=== PATIENT | female | born 1940 | race Caucasian/White ===

== ENCOUNTER 2018-07-27 12:49 | Inpatient (IN) | payer MEDICARE, OTHER ==
[~2018-07-27] VITALS: Ht 149.9 cm; Wt 110.2 kg
--- OUTSIDE RECORDS SUMMARY | ~2018-07-27 | XMS ---
Demographics + + + | Address | [address] | | | [place] [address] | + + + | Preferred Language | Unknown | + + + | Marital Status | Unknown | + + + | Mormonism Affiliation | Unknown | + + + | Race | Unknown | + + + | Ethnic Group | Unknown | + + + Author + + + | Author | [facility] | + + + | Organization | [facility] | + + + | Address | [address] | | | [place] [address] | + + + | Phone | | + + + Care Team Providers + + + + | Care Paster Supervisor Name | Role | Phone | + + + + Unavailable | Unavailable | + + + + PROBLEMS +---------+ + + +--------+ + + | Type | Condition | ICD9-CM | [id number] | Onset | Condition | SNOMED | | | | Code | Code | Dates | Status | Code | +---------+ + + +--------+ + + | Problem | Hot | R23.2 | | | Active | [id number] | | | flashes | | | | | | +---------+ + + +--------+ + + | Problem | Essential | | I10 | | Active | 65011579 | | | hypertensi | | | | | | | | on | | | | | | +---------+ + + +--------+ + + | Problem | Dysphagia | 438.82 | | | Active | [id number] | +---------+ + + +--------+ + + ALLERGIES + + + + +--------+ | Substance | Reaction | Event Type | Date | Status | + + + + +--------+ | Bactrim | vertigo | Drug Allergy | Jun, | Active | + + + + +--------+ SOCIAL HISTORY No smoking Hx information available PLAN OF CARE + +---------+ | Activity | Details | + +---------+ +---+ | | +---+ + + + | Follow Up | 2 Months Reason:null | + + + | Pending Test | TSH | + + + | Pending Test | Lipid Panel | + + + | Pending Test | Comp. Metabolic Panel (14) | + + + | Pending Test | CBC | + + + | Pending Test | Hemoglobin A1C Panel | + + + VITAL SIGNS + + + + | Height | 4 ft 11 in in | 2017-07-23 | + + + + | Weight | 253.0 lbs | 2017-07-23 | + + + + | BMI | 51.09 kg/m2 | 2017-07-23 | + + + + | Temperature | 96.9 degrees Fahrenheit | 2017-07-23 | + + + + | Heart Rate | 84 /min | 2017-07-23 | + + + + | Blood pressure systolic | 162 mm Hg | 2017-07-23 | + + + + | Blood pressure diastolic | 85 mm Hg | 2017-07-23 | + + + + MEDICATIONS + + + + + + + +--------+ | Medicati | Instruct | Dosage | Frequenc | Start | End Date | Duration | Status | | on | ions | | y | Date | | | | + + + + + + + +--------+ | Clonidin | Orally | 1 tablet | 24h | 24 Jun, | | 30 | Active | | e HCl | Once a | at | | 2016 | | day(s) | | | 0.1 MG | day | bedtime | | | | | | + + + + + + + +--------+ | Tylenol | Orally | 1 tablet | 6h | | | | Active | | 325 MG | every 6 | as | | | | | | | | hrs | needed | | | | | | + + + + + + + +--------+ | Levothyr | Orally | 1 tablet | 24h | | | | Active | | oxine | Once a | on an | | | | | | | Sodium | day | empty | | | | | | | 100 MCG | | stomach | | | | | | | | | in the | | | | | | | | | morning | | | | | | + + + + + + + +--------+ RESULTS No Results PROCEDURES + + + + + | Procedure | Date Ordered | Related Diagnosis | Body Site | + + + + + | Office Visit, Est | Jul 23, 2017 | | | | Pt., Level 3 | | | | + + + + + IMMUNIZATIONS No Known Immunizations"
--- OUTSIDE RECORDS SUMMARY | ~2018-07-27 | XMS | Clinical Summary ---
Demographics + + + | Address | [address] | | | [place] [address] | + + + | Home Phone | | + + + | Preferred Language | Unknown | + + + | Marital Status | Unknown | + + + | Yarsani Affiliation | Unknown | + + + | Race | Unknown | + + + | Ethnic Group | Unknown | + + + Author + + + | Author | [employer] | + + + | Organization | [facility] [employer] [employer] [facility] | + + + | Address | Unknown | + + + | Phone | Unavailable | + + + Support + + +---------+ + | Name | Relationship | Address | Phone | + + +---------+ + | Berhane Hatfield | ECON | Unknown | | + + +---------+ + | Drew [place] | ECON | Unknown | | + + +---------+ + Care Team Providers + +------+ + | Care Trial Consultant Name | Role | Phone | + +------+ + PP | Unavailable | + +------+ + Allergies Not on File Current Medications Not on file Active Problems Not on file Social History + +-------+ +--------+------+ | Tobacco Use | Types | Packs/Day | Years | Date | | | | | Used | | + +-------+ +--------+------+ | Never Assessed | | | | | + +-------+ +--------+------+ + + + | Sex Assigned at | Date Recorded | | | | + + + | Not on file | | + + + Plan of Treatment + + + + + | Health Maintenance | Due Date | Last Done | Comments | + + + + + | Vaccine: | | | | | Dtap/Tdap/Td (1 - | 0 | | | | Tdap) | | | | + + + + + | Vaccine: Zoster (1 | | | | | of 2) | 1 | | | + + + + + | DEXA SCAN SCREENING | | | | | | 6 | | | + + + + + | Vaccine: | | | | | Pneumococcal 65+ | 6 | | | | Low/Medium Risk (1 | | | | | of 2 - PCV13) | | | | + + + + + | Vaccine: Influenza | | | | | (#1) | 8 | | | + + + + + Results Not on filefrom Last 3 Months Insurance + +--------+ +--------+-------+ + | Payer | Benefi | Subscriber | Type | Phone | Address | | | t Plan | ID | | | | | | / | | | | | | | Group | | | | | + +--------+ +--------+-------+ + | [place] [employer] [place] | [id number] | Medica | | | | FAMILY | [place] | | re | | | | | RE | | | | | | | FAMILY | | | | | + +--------+ +--------+-------+ + | MEDICAID | [place] | [id number] | | | [address] | | | [place] | | | | [place] | | | [place] | | | | [phone] | | | [employer] | | | | | + +--------+ +--------+-------+ + + +--------+ +--------+ + + | Guarantor Name | Accoun | Relation to | Date | Phone | Billing Address | | | t Type | Patient | of | | | | | | | | | | + +--------+ +--------+ + + | JENA PERALTA | Person | Self [birth year] Home: | [address] | | | al/Fam | | [phone] | [phone] [place] | | | rena | | [phone] | + +--------+ +--------+ + +"
--- OUTSIDE RECORDS SUMMARY | ~2018-07-27 | XMS ---
Demographics + + + | Address | [address] | | | [place] [address] | + + + | Preferred Language | Unknown | + + + | Marital Status | Unknown | + + + | Christianity Affiliation | Unknown | + + + | Race | Unknown | + + + | Ethnic Group | Unknown | + + + Author + + + | Author | [facility] | + + + | Organization | [facility] | + + + | Address | [address] | | | [place] [address] | + + + | Phone | | + + + Care Team Providers + + + + | Care Face Boss Name | Role | Phone | + + + + Unavailable | Unavailable | + + + + PROBLEMS +---------+ + + +--------+ + + | Type | Condition | ICD9-CM | [id number] | Onset | Condition | SNOMED | | | | Code | Code | Dates | Status | Code | +---------+ + + +--------+ + + | Problem | Hot | R23.2 | | | Active | [id number] | | | flashes | | | | | | +---------+ + + +--------+ + + | Problem | Essential | | I10 | | Active | [id number] | | | hypertensi | | | | | | | | on | | | | | | +---------+ + + +--------+ + + | Problem | Dysphagia | 438.82 | | | Active | [id number] | +---------+ + + +--------+ + + ALLERGIES No Information SOCIAL HISTORY Never Assessed PLAN OF CARE VITAL SIGNS + + + + | Height | 4 ft 11 in in | 2017-08-27 | + + + + | BMI | na kg/m2 | 2017-08-27 | + + + + | Temperature | na degrees Fahrenheit | 2017-08-27 | + + + + | Heart Rate | na /min | 2017-08-27 | + + + + MEDICATIONS Unknown Medications RESULTS No Results PROCEDURES No Known procedures IMMUNIZATIONS No Known Immunizations MEDICAL (GENERAL) HISTORY + + +------+ | Type | Description | Date | + + +------+ | Medical History | Thyroid | | + + +------+ | 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
[~2018-07-27 12:49] MED LIST: ADULT LOW DOSE81 MG PO; ALEVE220 M1 PO; CRUTCH1 EACH; DICLOFENAC SODI75 MG PO; DILAUDID4 MG PO; FLAGYL500 MG PO; KEFLEX500 MG PO; LEVAQUIN500 MG PO; LEVOTHYROXINE100 MCG PO; LEVOTHYROXINE75 MCG PO; LISINOPRIL-HCT1 EAC1 PO; NORCO 5-325 TA1 EACH PO; OXYCONTIN10 MG PO; XARELTO20 MG PO; ZOFRAN8 MG PO
[2018-08-10] MEDS ORDERED: IBUPROFEN200 MG PO (10:25)
--- NOTE | 2018-08-10 11:22 | NUR ---
PATIENT HERE FOR PREADMISSION APPOINTMENT. SHE IS SCHEDULED TO HAVE A LEFT REVERSE TOTAL SHOULDER ARTHROPLASTY. HER JOSE LUIS CAME WITH HER TODAY AND WILL BE THE ONE TO TAKE HER HOME WHEN SHE IS DISCHARGED. SHE DOES NOT HAVE STEPS INTO THE HOME OR INSIDE THE HOME. HER REPORTS HAVING GRAB BARS IN THE BATHROOM. THEY HAVE A TUB/SHOWER COMBINATION. WE TALKED ABOUT OBTAINING A SHOWER BENCH BUT SHE IS UNSURE WHERE SHE WILL BE SHOWERING DUE TO SOME PLUMBING ISSUES. SHE WOULD LIKE PHYSICAL THERAPY SET UP WITH [facility] WHEN THE TIMES COMES. THIS INFORMATION WILL BE SENT TO DR CHEUNG AND RAVI PLANNING FOR FURTHER FOLLOW UP.
--- NOTE | 2018-08-17 06:18 | NUR ---
CHG NASAL SWAB AND ORAL RINSE COMPLETE.
--- NOTE | 2018-08-17 09:32 | NUR ---
08/17/18 0949 Yancy Galeana 0424-PATIENT ARRIVED TO PACU ON 10L MASK O2 SAT 93-94% ORAL AIRWAY IN PLACE. NONAROUSABLE. PATIENT REPOSITIONED IN BED AND HOB SLIGHTLY ELEVATED. DRESSING CDI. SLING IN PLACE AND ICE APPLIED. PATIENT TAKES SHALLOW BREATHES.
--- NOTE | 2018-08-17 11:00 | NUR ---
PT ARRIVED WITH PACU STAFF MEMBER. PT REMAINS DROWSY AT THIS TIME. PT CMS CHECKED WITH FRENCH BINDER. PULSES STRONG, CAP REFILL <3, HANDS WARM TO THE TOUCH, PT HAS GOOD ENVELOPE FOLD OPERATOR AND STATES SHE HAS TINGLING IN LEFT HAND/HARM. PT ARM IS IN A SLING AND PROPPED ON A PILLOW. BREATH SOUNDS CLEAR AND DIMNINISHED IN BASES. PT IS TAKING SHALLOW BREATHS. WILL CONTINUE TO ENCOURAGE DEEP BREATHING. PT STATES SHE HAS A PAD IN PLACE FOR DRIBBLING AND CAN TELL WHEN SHE NEEDS TO URINATE. BED ALARM ON FOR PATIENT SAFETY. ICE PACK TO LEFT SHOULDER. DRESSING IN CLEAN DRY AND INTACT. WILL CONTINUE TO CLOSELY MONITOR.
--- NOTE | 2018-08-17 11:37 | NUR ---
PT ARRIVED. UPDATED REGUARDIN PT CARE. PT CONTINUES TO REST AT THIS TIME, BUT AWAKENS TO STAFF TALKING TO HER. PT TOLERATES ICE CHIPS. WILL CONTINUE TO CLOSELY MONITOR.
--- NOTE | 2018-08-17 12:33 | NUR ---
PT RESTING IN BED. PT IS LESS DROWSY THAN WHEN ADMITTED. PT TOLERATING ICE CHIPS. PT REMAINS AT BEDSIDE. WILL CONTINUE TO CLOSELY MONITOR.
--- NOTE | 2018-08-17 12:54 | NUR ---
PT TOLERATING ICE CHIPS AND WATER. GAVE SCHEDULED MEDICATION. PT TOLERATED WELL. WILL CONTINUE TO CLOSELY MONITOR.
--- NOTE | 2018-08-17 14:00 | NUR ---
PT REPOSITIONED AND BEDDING CHANGED. PT HAD AN INCONTINENT EPISODE. NEW ATTEND PLACED. PT STATES SHE URINATES OFTEN WHEN SHE COUGHS. NEW ICE APPLIED TO SHOULDER FOR COMFORT. PT HAS CALL LIGHT IN REACH. WILL CONTINUE TO CLOSELY MONITOR.
--- NOTE | 2018-08-17 14:30 | NUR ---
PATIENT SETTING UP IN BED, FRESH WATER GIVEN AND ICE CHIP.CALL LIGHT IN REACH. NO OTHER NEEDS AT THIS TIME.
--- NOTE | 2018-08-17 16:15 | NUR ---
PT WORKING WITH PHYSICAL THERPAY. PT RAMINS PAINFUL IN BACK OF SHOULD, BUT ALSO VERY DROWSY PRIOR TO THIS. PT VITALS STABLE. TYLENOL DID NOT GIVE MUCH RELIEF PRIOR. PT STATES THE ICE IS WORKING WELL FOR IT, BUT PAIN IS INCREASING. GAVE PRN DOSE 4MG DILAUDID. WILL MONITOR PT CLOSELY.
--- NOTE | 2018-08-17 17:00 | NUR ---
PT USED BEDPAN, BUT HAD AN INCONTINENT EPISODE PRIOR TO USING BEDPAN. PT STATES PAIN IS IMPROVING WITH CURRENT PAIN MEDICATION. PT REPOSITIONED IN BED WITH PILLOW SUPPORT. NO REDDNESS NOTED TO BACK SIDE. PT ARM POSITIONED ON PILLOW. NEW ICE APPLIED TO SITE. PT VOICE IS HOARSE SINCE ARRIVAL TO UNIT. PT REMAINS MORE AWAKE AND LESS DROWSY THAN PRIOR IN THE SHIFT. WILL CONTINUE TO CLOSELY MONITOR.
--- NOTE | 2018-08-17 18:45 | NUR ---
PT RESTING IN BED AT THIS TIME. PT HAD SURGERY THIS MORNING AND TOOK A LITTLE WHILE TO WEAN OFF OXYGEN IN PACU. PT ARRIVED ON 3L NC AND IS TOLERATING WELL. DON SIDHU UPDATED THIS RN TO MONITOR RESP STATUS BECAUSE PT RECEIVED A BLOCK IN THE SHOULDER AND IT MAY TEMPERARILY PARALYZE THE LEFT SIDE DIAGHRAM WELL. PT RR IS EVEN AND UNLABORED. PT SPO2 97% ON 3L NC. WILL TRY TO TITRATE OXYGEN TOLERATED. PT HAD MASHED POTATOES AND TOELRATED WELL. PT IS INCONTINENT AT BASELINE. PT HAS SLING IN PLACE. PILLOW UNDER ARM. ICE TO SITE. NO DRAINAGE NOTED TO MEPILEX DRESSING ON SHOULDER. PT PAIN WELL CONTROLLED WITH PO MEDICATION AT THIS TIME. WILL CONTINUE TO CLOSELY MONITOR.
--- NOTE | 2018-08-17 18:50 | NUR ---
PT ARRIVED TO [facility] WITH VOMITING AND PAIN. PT WAS UNABLE TO MEDICATIONS D/T PT RECEIVING A HIDA SCAN. PT IS AGREEABLE TO THIS PLAN. PT RECIEVED 1 DOSE 1MG ATIVAN AND THIS HELPED PT RELAX AND PAIN/VOMITING DECREASED. MD AWARE. PT HAD HIDA SCAN COMPLETED AND UPON RETURN PT DENIED N/V/ AND PAIN. PER MD ADVANCE DIET AND MONITOR.
--- NOTE | 2018-08-17 19:29 | NUR ---
RECEIVED REPORT FROM FEMI HERNANDES. PT IN BED, AWAKE. CONTINUOUS PULSE OX WNL, 3 L OXYGEN VIA NC. IVF INFUSING WNL. PT REPORTS PAIN 5/10, BUT DENIES NEEDS FOR PAIN MEDICATION AT THIS TIME. ICE PACK, SLING ON LEFT SHOULDER. NUMBNESS IN LEFT HAND AND ARM. PILLOW UNDER ARM. DERMABOND AND MEPILEX CLEAN, DRY, AND INTACT. ATTENDS IN PLACE. CALL LIGHT IN REACH. HEEL PROTECTORS AND SCD'S IN [place]CE.
--- NOTE | 2018-08-17 20:01 | NUR ---
CALL LIGHT ANSWERED, PILLOW REPLACED UNDER LEFT ARM FOR COMFORT. CALL LIGHT IN REACH, PT ON 3L OXYGEN BY NC, SCDS ON.
--- NOTE | 2018-08-17 22:22 | NUR ---
V/S DONE AND CHARTED.
--- NOTE | 2018-08-17 22:30 | NUR ---
ASSESSMENT COMPLETE. CMS INTACT ON LEFT SIDE. GENERALIZED EDEMA IN BILATERAL LOWER EXTREMITIES. PAIN 5/10 IN LEFT SHOULDER, DENIES NEED FOR PAIN MEDS AT THIS TIME. DRESSING CLEAN, DRY, AND INTACT. CALL LIGHT IN REACH. SCD'S AND HEEL PROTECTORS IN PLACE. ICE PACK IN PLACE ON LEFT SHOULDER.
--- NOTE | 2018-08-18 00:21 | NUR ---
IN ROOM TO ADMINISTER SCHEDULED PAIN MEDICATIONS. PT STATES PAIN IS 4/10. MEDICATIONS ADMINISTERED IN APPLESAUCE. PT REQUESTED TO EAT REMAINING APPLESAUCE. CALL LIGHT IN REACH.
--- NOTE | 2018-08-18 01:44 | NUR ---
IN ROOM TO COMPLETE VITALS. PT SLEEPING, AWAKENED EASILY. O2 SATURATIONS WNL ON 1 L NC.
--- NOTE | 2018-08-18 02:28 | NUR ---
ANSWERED CALL LIGHT. PT REQUESTS TO USE RESTROOM. 1 PERSON ASSIST WITH CANE TO RESTROOM. EDUCATED TO PULL CALL LIGHT WHEN FINISHED. PT VERBALIZES UNDERSTANDING.
--- NOTE | 2018-08-18 02:47 | NUR ---
ASSESSMENT COMPLETE. LEFT SHOULDER DRESSING CLEAN, DRY, AND INTACT. CMS INTACT. PAIN 7/10, PT DENIES NEED FOR PAIN MEDICATION AT THIS TIME. PT GIVEN FRESH ICE, APPLIED TO SHOULDER. SCDS AND HEEL PROTECTORS IN PLACE. CALL LIGHT IN REACH.
--- NOTE | 2018-08-18 05:07 | NUR ---
PT APPEARED TO SLEEP WELL THROUGHOUT THE NIGHT. PT RECIEVED SCHEDULED PAIN MEDICATIONS FOR LEFT SHOULDER PAIN. 2 PERSON ASSIST WITH CANE/ WALKER TO RESTROOM. PT TAKES MEDICATIONS WITH APPLESAUSE. CONTINUOUS PULSE OX- O2 SATURATIONS WNL ON ROOM AIR. LEFT SHOULDER DRESSING CLEAN, DRY, AND INTACT, CMS INTACT. INF INFUSING WNL. ABX ADMINISTERED PRESCRIBED. SCD'S AND HEEL PROTECTORS IN PLACE. SLING ON LEFT ARM, LEFT ARM ELEVATED ON PILLOWS, ICE APPLIED THROUGHOUT SHIFT.
--- NOTE | 2018-08-18 06:06 | NUR ---
IN ROOM TO ADMINISTER AM MEDICATIONS. VITALS TAKEN, MEDICATIONS GIVEN WITH APPLESAUCE. ABX INFUSING WNL. ICE PACK APPLIED TO LEFT ARM. CALL LIGHT IN REACH.
--- NOTE | 2018-08-18 08:25 | NUR ---
THIS SCREW MACHINE OPERATOR SINGLE SPINDLE AND LEVON VALDEZ ASSISTED PATIENT TO AMBULATE TO BATHROOM, AND BACK TO BEDSIDE RECLINER. PATIENT RESTING IN RECLINER, LEFT ARM ELEVATED WITH PILLOW, ICE ON SHOULDER. PATIENT EATING BREAKFAST. LINENS CHANGED. PATIENT WASHED HANDS AND FACE WITH WARM WASH CLOTH. CALL LIGHT IN REACH. NO OTHER NEEDS AT THIS TIME.
--- NOTE | 2018-08-18 08:41 | OR ---
[facility] [address], [place] [address] Signed DATE OF OPERATION: 08/17/2018 SURGEON: Ethan Cheung MD PREOPERATIVE DIAGNOSIS: Cuff tear arthropathy left shoulder, posttraumatic. POSTOPERATIVE DIAGNOSIS: Cuff tear arthropathy left shoulder, posttraumatic. PROCEDURE: Reverse total shoulder, left. ANESTHESIA: General. SPECIMENS AND COMPLICATIONS: There were no specimens or complications. BLOOD LOSS: About 200. WHAT WAS DONE: The patient was taken to the operating room. After anesthesia was induced and airway secured, the patient was positioned, prepped and draped in a routine sterile fashion in a slightly modified beach chair position. A deltopectoral incision was outlined and skin incision made. Hemostasis was achieved with electrocautery. We then split the subcutaneous tissue bluntly and identified the deltopectoral interval. Again, we were able to open the deltopectoral interval with a tip of the glove finger and swept the deltoid and the vein laterally. Subcutaneous retractor was placed. The clavipectoral fascia at the lateral aspect of the conjoined tendon was released and the self-retaining retractor was deepened. We palpated both the muscular cutaneous and then the axillary nerve and kept them protected. We then released the subscapularis off the lesser tuberosity and marked it with a single stay suture. This was then allowed to retract. We then did an anterior, superior, and inferior capsulectomy. This allowed us to dislocate the humeral head into the incision. We used a small drill bit and then sequential reamers to ream the proximal humerus up to 10 mm. We then placed the alignment jig on the proximal humerus and resected the proximal humerus for the reverse shoulder components. We then removed marginal osteophytes. We were then able to place the retractors about the glenoid and exposed the glenoid rather well. We removed the Electronically Signed By: ETHAN CHEUNG MD 08/18/18 0841 PATIENT NAME: SOFYA PERALTA OPERATIVE REPORT DATE OF : 42 REPORT #: [id number] PHYSICIAN: ETHAN CHEUNG MD PCP: FREIDA FOY MD REPORT IS CONFIDENTIAL AND NOT TO BE RELEASED WITHOUT AUTHORIZATION [facility] [address], [place] [address] Signed remnants of the stump of the long head of the biceps along with the labrum. We then placed the 38 mm metaglene guide on the glenoid and placed the central guidewire. We then reamed the central guidewire. We then used the Jaret tool to finish the superior and inferior aspects of the glenoid and we used the small 38 mm reamer to remove the articular cartilage. We then impacted a 38 mm metaglene. It was secured with locking screws superiorly and inferiorly and nonlocking screws anteriorly and posteriorly. We were then able to put the glenosphere on the metaglene. We then delivered the proximal humerus back into the incision and placed in the remaining guide. We did use the eccentric reamer to push our construct a little posteriorly. We then reamed the proximal humerus. We removed the guide and used a rongeur to remove all the extra bone. The shoulder was then copiously irrigated and dried. We then impacted the 10 mm stem with the metaphysis in 10 degrees of retroversion. We trialed the shoulder with a +3 and they were happy, but there was just a tiny bit loose. We therefore dislocated the shoulder again, replaced the trial with the real 6 mm poly and reduced the shoulder. This gave us good alignment, good position, no apparent impingement and an excellent range of motion. The shoulder was copiously irrigated and closed in a standard fashion. Sterile dressings were applied and the patient was awakened and taken to the recovery room where they arrived in stable condition. Counts were correct and antibiotic protocols were followed. Ethan Cheung MD [facility]FB/MODL /[id number] Copies: ~ Electronically Signed By: ETHAN CHEUNG MD 08/18/18 0841 PATIENT NAME: SOFYA PERALTA OPERATIVE REPORT DATE OF : 42 REPORT #: [id number] PHYSICIAN: ETHAN CHENUG MD PCP: FREIDA FOY MD REPORT IS CONFIDENTIAL AND NOT TO BE RELEASED WITHOUT AUTHORIZATION
--- NOTE | 2018-08-18 08:47 | NUR ---
PATIENT SITTING UP IN THE CHAIR CURRENTLY, SHE REPORTS THAT PAIN IS AT A 8/10 BUT DOES NOT WANT PAIN MEDICATION AT THIS TIME. SHE ATE 100% OF HER BREAKFAST AND HAS NO C/O NAUSEA. CMS IS INTACT TO THE LEFT ARM AND DRESSING REMAINS CDI. ICE BAG REPLACED AT THIS TIME
--- NOTE | 2018-08-18 09:34 | NUR ---
PATIENTS IV SALINE LOCKED FOR PHYSICAL THERAPY,
--- NOTE | 2018-08-18 10:13 | NUR ---
PATIENT RESTING IN BED, CALL LIGHT IN REACH. NO OTHER NEEDS AT THIS TIME.
--- NOTE | 2018-08-18 10:55 | NUR ---
DOCTOR JONATAN IN TO SEE THE PATIENT, IV REMAINS SALINE LOCKED AND PULSE OX DC'D PATIENT WILL D/C HOME AFTER ORDERS COMPLETED BY THE MD.
[2018-08-18] MEDS ORDERED: NORCO 7.5-3251 EACH PO (12:12)
--- NOTE | 2018-08-18 12:50 | NUR ---
IV DC'D IN THE RIGHT HAND TIP INTACT NO REDDNESS OR SWELLING NOTED.
== END 2018-08-18 13:40 | disposition home or self-care (01) | DRG 483 ==
LOC: DSVR 08-17 05:35 → MS 08-17 05:35
PROVIDERS: ADMIT Orthopaedic Surgery
PROC: 0RRK00Z Replacement of Left Shoulder Joint with Reverse Ball and Socket Synthetic Substitute, Open Approach (ICD-10-PCS; principal; 2018-08-17 06:45)
DX: M19.012 Primary osteoarthritis, left shoulder (principal); E03.9 Hypothyroidism, unspecified
CPT/HCPCS: 36415; 64415; 73030; 76942; 80048; 85025; 94762; 97110; 97161; C1713; C1776; G8978; G8979; G8980; J0360; J0690; J1100; J1885; J2250; J2405; J2704; J2765; J3010; J7120

== ENCOUNTER 2021-08-03 14:59 | Emergency (ER) | payer OTHER, MEDICARE ==
[~2021-08-03] VITALS: Ht 149.9 cm; Wt 110.2 kg
[~2021-08-03 14:59] MED LIST changes: +IBUPROFEN200 MG PO; +NORCO 7.5-3251 EACH PO
== END 2021-08-03 20:58 | disposition home or self-care (01) ==
LOC: ED 14:59
PROC: 0HQ1XZZ Repair Face Skin, External Approach (ICD-10-PCS; principal; 2021-08-03)
DX: S01.81XA Laceration without foreign body of other part of head, initial encounter (principal); W01.0XXA Fall on same level from slipping, tripping and stumbling without subsequent striking against object, initial encounter; E03.9 Hypothyroidism, unspecified; M19.90 Unspecified osteoarthritis, unspecified site; E66.9 Obesity, unspecified; I10 Essential (primary) hypertension; Z87.891 Personal history of nicotine dependence; Z88.2 Allergy status to sulfonamides; Z79.899 Other long term (current) drug therapy
CPT/HCPCS: 12011; 70450; 73130; 73560; 99283-25